=== PATIENT | male | born 1950 | race Caucasian/White ===

== ENCOUNTER → 2023-07-10 11:16 | Outpatient (REF) | payer MEDICARE, OTHER, SELFPAY | LOC: RAD 11:16 | PROVIDERS: ATTENDING PHYSICIAN Family Medicine | DX: J18.9 Pneumonia, unspecified organism (principal) | CPT/HCPCS: 71046 ==

== ENCOUNTER → 2023-11-20 06:09 | Day surgery (SDC) | payer MEDICARE, OTHER, SELFPAY | LOC: GI 06:09 | PROVIDERS: ATTENDING PHYSICIAN Specialist | DX: K50.012 Crohn's disease of small intestine with intestinal obstruction (principal); K52.89 Other specified noninfective gastroenteritis and colitis; D12.1 Benign neoplasm of appendix; D12.2 Benign neoplasm of ascending colon | CPT/HCPCS: 45385; 45380; 88305 ==

== ENCOUNTER → 2024-01-08 07:29 | Outpatient (REF) | payer MEDICARE, OTHER, SELFPAY | LOC: PAVMRI 07:29 | PROVIDERS: ATTENDING PHYSICIAN Specialist; FAMILY PHYSICIAN Family Medicine | DX: K86.2 Cyst of pancreas (principal) | CPT/HCPCS: 74183; A9575 ==